=== PATIENT | male | born 1995 | race African-American/Black ===

== ENCOUNTER 2019-03-29 17:17 | Emergency (ER) | payer SELFPAY ==
[~2019-03-29] VITALS: Ht 172.7 cm; Wt 83.9 kg
--- OUTSIDE RECORDS SUMMARY | 2019-03-29 17:19 | XMS REPORT ---
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 Allergies, Adverse Reactions, Alerts Allergy Name Allergy Type Status Severity Reaction(s) Onset Date Inactive Date Treating Clinician Comments No Known Allergies DA Active U 2018-10-16 00:00:00 No Known Allergies DA Active U 2016-08-17 00:00:00 Medications This patient has no known medications.
[2019-03-29] MEDS ORDERED: CLINDAMYCIN HC300 MG PO (19:41)
[2019-03-29 20:09] VITALS: BP 128/69
== END 2019-03-29 20:12 | disposition home or self-care (01) ==
LOC: ER 17:17
DX: L03.311 Cellulitis of abdominal wall (principal); S30.861A Insect bite (nonvenomous) of abdominal wall, initial encounter
CPT/HCPCS: 99282